=== PATIENT | female | born 2005 | race Caucasian/White ===

== ENCOUNTER 2024-04-24 06:28 | Day surgery (SDC) | payer OTHER, SELFPAY ==
[2024-04-24] VITALS (8 sets, daily range): BP systolic 93–117; BP diastolic 59–71; BMI 20.4
[2024-04-24] MEDS: TYLENOL 1000 MG PO (09:00)
[2024-04-24] MEDS: NORMOSOL-R/PLASMALYTE-A 1000 IV (09:00)
--- NOTE | 2024-04-24 09:18 | W.SUR.PREOP ---
Pre-Operative Surgical Note
-
I have examined this patient prior to the performance of the scheduled procedure.
The patient's condition is unchanged from the time of the current History and
Physical and the patient is able to undergo the scheduled procedure.
--- NOTE | 2024-04-24 12:37 | W.IMMPOSTOP ---
Surgical Immed Post Op Note
-
Primary Surgeon: Graham Mendoza MD
Assisting Surgeon: None
Pre-op Diagnosis: Pilonidal disease
Post-op Diagnosis: Same
Procedure Performed:
1. Excision of a pilonidal cyst
2. Local advancement flap
Anesthesia Type: General
Specimen / Cultures: Pilonidal cyst
Estimated Blood Loss: 3 cc
Complications: None
Operative Findings: 3 midline pits with a small cyst just to the left of midline, excised completely. A 1 cm thick, 2 cm deep local advancement flap was created and the wound was closed in layers.
--- NOTE | 2024-04-24 12:42 | OR.RPT ---
Operative Report
Operative Report
Patient Name: Salome Collier
: 2005
Date of Operation: 04/24/2024
Preoperative Diagnosis: Pilonidal Cyst
Postoperative Diagnosis: Same
Procedure(s):
1. Excision of pilonidal cyst
2. Karydakis Flap (Local advancement flap)
Surgeon(s):
Dr. Mendoza
Licensed Mortician(s):
None
Anesthesia: General anesthesia
Estimated Blood Loss: 3 cc
Urine Output: None
Drains/Lines/Implants: None
Specimens: Pilonidal Cyst
Indication for surgery:
The patient was found to have a pilonidal cyst. After review of their therapeutic options, they elected to pursue operative excision with flap coverage
Operative Findings: 3 midline pits with a small cyst just to the left of midline, excised completely. A 1 cm thick, 2 cm deep local advancement flap was created and the wound was closed in layers.
Details of the operation:
After successful induction of general anesthesia, the patient was rotated prone and placed in the jackknife position. The hair around the buttocks was clipped and the area was prepped and draped in the usual fashion. A team timeout was performed.
An off midline, asymmetric ellipse was marked. The operative field area was anesthetized with 20cc quarter percent Marcaine with epi. An incision was made through the skin line sharply with a 15 blade and dissection carried down through
subcutaneous tissue. Medially the incision was taken at a 90 degrees down towards the coccyx, laterally incision was taken out of 45 degree angle. The entire cyst along with the tracts and midline pits were excised, no disease was left behind.
The wound was irrigated with sterile saline and hemostasis was achieved. The specimen was passed off the field. We then began developing our flap on the medial aspect of the wound, roughly 1 cm thick, and 2 cm deep. The tape holding the buttocks
was released and it appeared the flap would close with minimal tension. The first layer of subcutaneous tissue was approximated using interrupted 2-0 vicryl suture. The second layer was approximated using interrupted 3-0 Vicryl's. The skin was
then approximated using interrupted 3-0 Vicryl's followed by a running 4-0 Monocryl. The skin was then glued with Dermabond. The patient tolerated the procedure well, and returned to the Recovery Room in stable condition. Sponge and instrument
counts were correct.
I was the attending physician and present for all critical portions of the case
Graham Mendoza MD
--- NOTE | 2024-04-24 12:57 | SUR.PHASEI ---
Alert, vss, denies c/o positioned on L side comfortable
--- NOTE | 2024-04-24 13:05 | SUR.PHASEI ---
alert, awake, awaiting sds
== END 2024-04-24 13:34 | disposition home or self-care (01) ==
LOC: SDS 06:28
PROVIDERS: ATTENDING PHYSICIAN Surgery
DX: L05.91 Pilonidal cyst without abscess (principal)
CPT/HCPCS: 11772; 88304

== ENCOUNTER 2025-05-18 12:08 | Emergency (ER) | payer OTHER, SELFPAY ==
[2025-05-18 12:09] VITALS: BP 99/65
--- NOTE | 2025-05-18 13:01 | ED.GENMED ---
History of Present Illness
General
Chief Complaint: Abdominal Symptoms
Source: patient
Exam Limitations: none
Time Seen by Provider: 05/18/25 12:49
Nursing documentation reviewed up to this point in time: agreed with
History of Present Illness
History of Present Illness:
20-year-old female presenting to the emergency department today with concerns of abrupt onset of nausea vomiting diarrhea a few hours ago. Has a vague headache and vague abdominal pain but denies any focal pain. Denies any chest pain shortness of
breath denies any significant fever.
Review of Systems
Review of Systems
Allergies reviewed?: Yes
All Other Systems: ROS reviewed and negative except as documented in HPI and ROS
Phy Exam
Physical Exam
Physical Exam:
GENERAL: Alert , in no apparent distress
EYE: pupils equal and reactive
NECK: Supple, no significant adenopathy.
ENT: o/p clr, mmm.
CARDIAC: Regular rate and rhythm .
LUNGS: Clear breath sounds bilaterally, no acute respiratory distress, no wheezes/rales/rhonchi
ABDOMEN: Soft, without focal tenderness, no r/g, no cvat
NEUROLOGICAL: Alert and oriented, no focal neuro deficits
SKIN: Warm and dry, skin intact.
MUSCULOSKELETAL: No edema, well perfused.
PSYCH: Normal and appropriate interaction.
Course
Orders/Labs/Results
Orders:
Orders
05/18/25 12:56
Famotidine [Pepcid] 20 mg IV NOW STA
Ondansetron Injectable [Zofran] 4 mg IV NOW STA
05/18/25 12:57
0.9% Sodium Chloride 1000 ml [Nss] 1,000 ml IV BOLUS
05/18/25 12:58
Test Result ONCE
05/18/25 13:22
Beta Hcg Serum Qualitative Screen [HCG, Serum Qualitative Screen] Urgent
CBC/With Diff [Complete Blood Count/With Diff] Urgent
CMP [Comprehensive Metabolic Panel] Urgent
Lipase Urgent
Abnormal Lab Results
05/18/25
13:22
RBC 4.04 L 10^6/uL
(4.20-5.40)
Hct 35.8 L %
(37.0-47.0)
Absolute Neuts (auto) 6.7 H 10^3/uL
(1.4-6.5)
Absolute Lymphs (auto) 0.8 L 10^3/uL
(1.2-3.4)
Neutrophils % 82.9 H %
(42.2-75.2)
Lymphocytes % 10.2 L %
(20.5-51.1)
05/18/25 13:22
05/18/25 13:22
Vital Signs
Initial and Last Documented VS:
Initial Vital Signs
Temp Pulse Resp BP Pulse Ox
97.5 F 76 16 99/65 99
05/18/25 12:09 05/18/25 12:09 05/18/25 12:09 05/18/25 12:09 05/18/25 12:09
Last Documented Vital Signs
Temp Pulse Resp BP Pulse Ox
97.5 F 76 16 99/65 99
05/18/25 12:09 05/18/25 12:09 05/18/25 12:09 05/18/25 12:09 05/18/25 13:04
MDM/Problems Addressed
MDM/Problems Addressed:
20-year-old female presenting to the emergency department today with concerns of nausea vomiting diarrhea starting few hours prior to arrival. Here patient in no distress no abdominal pain to palpation. Patient was given Zofran and fluids with
significant improvement of symptoms. Labs without emergent abnormalities. Patient stable for discharge with likely stomach virus. Return precautions given.
*Pulse Oximetry
SaO2: 99
Oxygen Mode of Delivery: Room air
Patient hypoxic: no (99)
*Critical Care Note
Total Time (30-74mins, 75-104mins- exclusive of procedures): Not Applicable
ED Attending Note
-
Portions of this chart may have been created with voice recognition software.� Occasional wrong word or��sound alike� substitutions may have occurred due to the inherent limitations of voice recognition software.
Discharge Plan
Departure
Patient Disposition: Home (Routine Discharge)
Date of Disposition: 05/18/25
Time of Disposition: 14:39
Patient with high blood pressure during this ER visit?: No
Condition: Good
Covid-19: Not Applicable
Discharge Problem:
Abdominal pain, vomiting, and diarrhea
Instructions: Diarrhea in teens and adults, Nausea and Vomiting, Adult (DC)
Prescriptions:
New
ondansetron 4 mg tablet,disintegrating
4 mg PO Q6H PRN (Reason: nausea and vomiting) Qty: 7 0RF
No Action
norethindrone ac-eth estradiol 1 mg- 20 mcg Tablet,Disintegrating
1 tab PO DAILY
acetaminophen [acetaminophen] 325 mg tablet
650 mg PO Q6HPRN PRN (Reason: mild pain) Qty: 14 0RF
tramadol 50 mg tablet
25 mg PO Q6HPRN PRN (Reason: severe pain/breakthrough pain) Qty: 8 0RF
ibuprofen 600 mg tablet
600 mg PO Q6H PRN (Reason: pain) Qty: 14 0RF
Referrals:
Matteo Salas MD [Family Provider, Internal Medicine]
Activity Restrictions/Additional Instructions:
You came to the emergency department today with concerns of nausea vomiting diarrhea. Here he had reassuring assessment. Please take the prescribed medications and rehydrate over the next few days. Return for any worsening, new or concerning
symptoms.
Interventions
Interventions:
*Risk Screen - Suicide Last Done: 05/18/25 13:11
*General Assessment Last Done: 05/18/25 13:11
*Neglect/Abuse Screening Last Done: 05/18/25 13:11
*ED- Fall Risk Assessment Last Done: 05/18/25 13:11
*ED COVID-19 Vaccine History Last Done: 05/18/25 13:11
*ED Influenza Vaccine History Last Done: 05/18/25 13:11
FA-Xghyow-Ptqqnkgztz Assessment Last Done: 05/18/25 13:11
Discharge Date and Time
Print Language: ALB[place]
[2025-05-18] MEDS: ZOFRAN 4 MG IV (13:23)
[2025-05-18] MEDS: NSS 1000 IV (13:23)
[2025-05-18] MEDS: PEPCID 20 MG IV (13:23)
[2025-05-18 13:42] LABS: Hematocrit 35.8 % (37.0-47.0); Hemoglobin 12.4 g/dL (12.0-16.0); Mean Corp Hgb Conc. 34.6 g/dL (33.0-37.0); Mean Corpuscular Volume 88.6 fL (81.0-99.0); Nucleated Red Blood Cells % 0 %; Platelet Count 283 10^3/uL (130-400); Red Cell Dist. Width 11.9 % (11.5-14.5)
[2025-05-18 13:55] LABS: ALT (SGPT) 26 U/L (0-35); AST (SGOT) 31 U/L (14-36); Albumin 5.0 g/dl (3.5-5.0); Alkaline Phosphatase 54 U/L (38-126); Blood Urea Nitrogen 8 mg/dl (7-17); Calcium 9.3 mg/dl (8.4-10.2); Carbon Dioxide 23 mmol/L (22-30); Chloride 107 mmol/L (98-107); Glucose 91 mg/dl (70-99); HCG, Serum Qualitative Screen Negative; Lipase 29 U/L (23-300); Potassium 4.3 mmol/L (3.5-5.1); Sodium 141 mmol/L (135-145); Total Protein 7.7 g/dl (6.3-8.2); eGFR > 60.00
[2025-05-18 15:09] VITALS: BP 119/64
== END 2025-05-18 15:11 | disposition home or self-care (01) ==
LOC: EMR 12:08
PROVIDERS: Physician Assistant; EMERGENCY PHYSICIAN Emergency Medicine; FAMILY PHYSICIAN Internal Medicine
DX: R10.9 Unspecified abdominal pain (principal); R11.10 Vomiting, unspecified; R19.7 Diarrhea, unspecified
CPT/HCPCS: 99284; 96374; 96375; 96361; 80053; 83690; 84703; 85025